=== PATIENT | male | born 1945 | race Caucasian/White ===

== ENCOUNTER 2021-01-07 09:50 | Outpatient (CLI) | payer OTHER, SELFPAY ==
--- NOTE | 2021-01-07 10:43 | ECG_ITS ---
Measurements Intervals [place] Rate: 60 P: 43 [place]: 159 QRS: 59 QRSD: 118 T: 63 QT: 383 QTc: 384 Interpretive Statements SINUS RHYTHM BORDERLINE ST-T WAVE ABNORMALITY- INF/HIGH LAT LEADS BASELINE ARTIFACT- I, II, III, AVR, AVL, AVF BORDERLINE ECG Electronically Signed On 01-07-2021 11:11:45 CDT by Prakash Anderson D.O.
[2021-01-07 11:08] LABS: Basophils Percent Auto 0.2 % (0.2-1.2); Eosinophils Absolute Auto 0.2 K/mm3 (0-0.3); Eosinophils Percent Auto 3.9 % (0-4.4); Hematocrit 44.9 % (42.0-52.0); Hemoglobin 15.2 g/dL (14.0-18.0); Immature Granulocyte Absolute 0.01 K/mm3 (0.00-0.031); Immature Granulocyte Percent A 0.2 % (0-0.5); Lymphocytes Absolute Auto 1.49 K/mm3 (0.9-3.2); Lymphocytes Percent Auto 30.3 % (18.3-44.2); Mean Corpuscular HGB Conc 33.9 g/dl (32-36); Mean Corpuscular Hemoglobin 32.3 pg (26-34); Mean Corpuscular Volume 95.3 fl (80-100); Mean Platelet Volume 9.5 fl (7.4-10.4); Monocytes Absolute Auto 0.5 K/mm3 (0.1-0.6); Monocytes Percent Auto 9.8 % (2.6-8.5); Neutrophils Absolute Auto 2.7 K/mm3 (1.3-6.7); Neutrophils Percent Auto 55.6 % (45.5-73.1); Platelet Count Result 191 k/mm3 (150-375); Red Blood Count 4.71 M/mm3 (4.6-6.20); Red Cell Distribution Width 12.3 % (11.5-14.5); White Blood Count 4.9 K/mm3 (4.5-10.0)
[2021-01-07 11:17] LABS: Albumin Level 4.3 g/dL (3.5-5.1); Estimated Glomerular Filt Rate > 60; Glucose 106 mg/dL (75-110)
[2021-01-07 11:21] LABS: Urine Cotinine NEGATIVE
== END 2021-01-07 09:51 | disposition home or self-care (01) ==
PROVIDERS: PCP Family Medicine; Visit Provider Orthopaedic Surgery
DX: Z01.818 Encounter for other preprocedural examination (principal); M16.11 Unilateral primary osteoarthritis, right hip; Z51.81 Encounter for therapeutic drug level monitoring; Z79.899 Other long term (current) drug therapy
CPT/HCPCS: 80307; 82040; 82565; 82947; 85025; 93005

== ENCOUNTER → 2021-01-17 00:34 | Outpatient (CLI) | payer OTHER, SELFPAY ==
[2021-01-17 20:54] LABS: SARS-CoV-2 RNA PCR Negative
== END ==
PROVIDERS: PCP Family Medicine; Visit Provider Orthopaedic Surgery
DX: Z01.812 Encounter for preprocedural laboratory examination (principal); Z20.822 Contact with and (suspected) exposure to COVID-19
CPT/HCPCS: C9803; U0003; U0005

== ENCOUNTER 2021-02-06 13:33 | Outpatient (CLI) | payer OTHER, SELFPAY ==
[2021-02-06 14:03] LABS: Anion Gap 4 mmol/L (8-16); Blood Urea Nitrogen 21 mg/dL (9-20); Calcium 9.8 mg/dL (8.4-10.2); Carbon Dioxide 33 mmol/L (22-30); Chloride 103 mmol/L (98-107); Estimated Glomerular Filt Rate > 60; Glucose 101 mg/dL (75-110); Potassium 4.1 mmol/L (3.4-5.0); Sodium 140 mmol/L (137-145)
== END 2021-02-06 13:34 | disposition home or self-care (01) ==
LOC: ANHSURGERY 13:37
PROVIDERS: PCP Family Medicine; Visit Provider Orthopaedic Surgery
DX: Z01.818 Encounter for other preprocedural examination (principal); M16.11 Unilateral primary osteoarthritis, right hip
CPT/HCPCS: 36415; 80048; 83036; 86850; 86900; 86901; 87070

== ENCOUNTER → 2021-02-14 02:14 | Outpatient (CLI) | payer OTHER, SELFPAY ==
[2021-02-14 19:55] LABS: SARS-CoV-2 RNA PCR Negative
== END ==
PROVIDERS: PCP Family Medicine; Visit Provider Orthopaedic Surgery
DX: Z01.812 Encounter for preprocedural laboratory examination (principal); Z20.822 Contact with and (suspected) exposure to COVID-19
CPT/HCPCS: C9803; U0003; U0005

== ENCOUNTER 2021-02-18 01:32 | Day surgery (SDC) | payer OTHER, SELFPAY ==
[2021-01-07 10:26] VITALS: BP 158/74; PULSE 72; RESP 20; TEMP 36.2; O2SAT 95; BMI 35.1
--- NOTE | 2021-01-19 12:52 | PM.IMHP ---
H&P: HPI History of Present Illness Date/Time: 01/19/21 12:52 The patient is a 75-year-old male who presents with right hip pain due to primary osteoarthritis. Patient has pain in the thigh and groin, he has problems with standing or walking for long periods notes some limitation of motion of the right hip as well. The patient has start-up pain wrist pain and I pain he has tried a course of conservative measures including anti-inflammatories and activity modification without significant relief. X-rays reveal advanced primary osteoarthritis basically [id number] in the right hip joint. Patient states he can not get comfortable can not sleep at night. He has discussed further treatment options in detail with Dr. Bowers he has failed conservative measures he had now to proceed with a right total hip arthroplasty. Chief Complaint: Right hip joint pain due to severe primary osteoarthritis Review of Systems Review of Systems: All systems reviewed & are unremarkable except as noted in HPI and below PMFSH Past Medical History Medical History Diverticulitis Erectile dysfunction Essential hypertension Mixed hyperlipidemia Type 2 diabetes mellitus without complication Family History Family History Mother Patient's mother is in good health Father Patient's father is in good health Sibling Patient's sister is in good health Patient's brother is in good health Family history of malignant neoplasm of breast in first degree relative Social History Social History Smoking status: Never smoker Second hand tobacco smoke exposure: No Alcohol intake: current Substance use: never Substance use type: does not use Spiritual care concerns: No Meds Home Medications and Allergies Home Medications Medication Instructions Recorded Confirmed Type sildenafil 100 mg tablet 100 mg PO DAILY PRN #10 tablet 02/21/20 01/07/21 Rx acetaminophen [Tylenol Ex Str 500 mg PO Q6H PRN 01/07/21 01/07/21 History Arthritis Pain] amlodipine 5 mg PO HS 01/07/21 01/07/21 History losartan 100 mg HS 01/07/21 01/07/21 History Allergies Allergy/AdvReac Type Severity Reaction Status Date / Time No Known Allergies Allergy unknown Uncoded 01/09/21 08:38 Exam Narrative: Exam Narrative: On exam the patient is noted be well-developed well-nourished male no acute distress he is alert oriented x3. Normal mood and affect. Hearing and vision intact. HEENT exam within normal limits. Heart regular rate rhythm. Lungs clear auscultation. Abdomen benign. Extremities showed the patient's right hip to be painful with manipulation range of motion he has limited internal and external rotation and pain with extremes of motion. He has a positive Stinchfield and positive VICKI exam. Strength is 5 5. hip joint is otherwise stable. Neurovascular the patient is intact. Skin is intact. Central nervous system exam within normal limits. The patient walks with a limp because of his right hip / groin pain. Assessment and Plan Additional Plan The patient has severe primary osteoarthritis right hip joint. The patient has discussed risks benefits limitations and alternatives to surgery in great detail Dr. Bowers, the patient is now ready to proceed with a right total hip arthroplasty. The patient is scheduled to undergo surgery for 05/15/2021 at [facility] with Dr. Bowers. The patient voiced understanding and agrees with the above plan.
[2021-02-04 08:48] VITALS: BMI 34.9
--- NOTE | 2021-02-16 15:36 | PM.IMHP ---
H&P: HPI History of Present Illness Date/Time: 02/16/21 15:36 75 y/o male patient of Dr. Flower who presents today for right anterior total arthroplasty. He has been having pain in his hip for well over 6 months. He has severe arthritis in the hip. He is very active 75-year-old. He still exercises on a regular basis and finding difficult to do that because the pain in the hip. He has tried [id number] Aleve and Tylenol but has not had improvement of his symptoms. He has reached a point where he feels he is ready to proceed with total hip arthroplasty rather continue nonsurgical treatment. <NANCY Gallardo - Last Filed: 02/16/21 15:42> Chief Complaint: right hip DJD <NANCY Gallardo - Last Filed: 02/16/21 15:42> Review of Systems Review of Systems: All systems reviewed & are unremarkable except as noted in HPI and below <NANCY Gallardo - Last Filed: 02/16/21 15:42> [facility] Past Medical History Medical History: Medical History (Updated 02/17/21 @ 13:10 by Darrius Gonzalez DO) Diverticulitis Erectile dysfunction Essential hypertension Mixed hyperlipidemia KAT (obstructive sleep apnea) CPAP Type 2 diabetes mellitus without complication <NANCY Gallardo - Last Filed: 02/16/21 15:42> Family History Family History: Family History Mother Patient's mother is in good health Father Patient's father is in good health Sibling Patient's sister is in good health Patient's brother is in good health Family history of malignant neoplasm of breast in first degree relative <NANCY Gallardo - Last Filed: 02/16/21 15:42> Social History Social History: Social History Smoking status: Never smoker Second hand tobacco smoke exposure: No Alcohol intake: current Alcohol use details: STATES MAYBE 1/MONTH Substance use: never Substance use type: does not use Living arrangements: with family Spiritual care concerns: No <NANCY Gallardo - Last Filed: 02/16/21 15:42> Meds Home Medications and Allergies Home medications: Home Medications Medication Instructions Recorded Confirmed Type sildenafil 100 mg tablet 100 mg PO DAILY PRN #10 tablet 02/21/20 02/18/21 Rx acetaminophen [Tylenol Ex Str 500 mg PO Q6H PRN 01/07/21 02/18/21 History Arthritis Pain] amlodipine 5 mg PO HS 01/07/21 02/18/21 History losartan 100 mg HS 01/07/21 02/18/21 History <NANCY Gallardo - Last Filed: 02/16/21 15:42> Allergies/Adverse reactions: Allergies Allergy/AdvReac Type Severity Reaction Status Date / Time No Known Allergies Allergy unknown Uncoded 02/18/21 11:56 <NANCY Gallardo - Last Filed: 02/16/21 15:42> Exam Narrative: Exam Narrative: 75-year-old male alert pleasant. He is 6 ft 2 and 255 lb. He rates his pain as a 9/10. He has a 2+ posterior tibial artery pulse and absent dorsalis pedis pulse. His right hip flexes to 90 internally rotates to 0 and externally rotates to 25, these motions cause him anterior lateral hip pain. Stinchfield maneuver causes some same pain. He has no tenderness over the greater trochanter and normal abduction strength in lateral position. Skin is normal around the hip. He has no edema in lower extremity. He has no numbness to light touch right lower extremity. <NANCY Gallardo - Last Filed: 02/16/21 15:42> Resp: Auscultation: clear to auscultation bilaterally <NANCY Gallardo - Last Filed: 02/16/21 15:42> Cardio: Rate: regular rate <NANCY Gallardo - Last Filed: 02/16/21 15:42> Rhythm: regular rhythm <NANCY Gallardo - Last Filed: 02/16/21 15:42> Assessment and Plan Additional Plan 75-year-old male who has [id number] arthritis of the right hip with continued symptoms. Again he feels this point is really proceed with total hip arthroplasty rather continue nonsurgical treatme
[2021-02-18] VITALS (13 sets, daily range): BP systolic 112–162; BP diastolic 59–90; PULSE 68–83; RESP 10–20; TEMP 36.1–36.7; O2SAT 92–99
--- NOTE | ~2021-02-18 | XR_ITS ---
EXAMINATION: XR hip RT min 2V DATE: 02/18/2021 16:24 INDICATION: Right total hip arthroplasty. Postop. TECHNIQUE: 2 views of right hip were obtained. COMPARISON: Right hip radiographs 10/04/2019 FINDINGS: There is a total right hip arthroplasty in near-anatomic alignment. No fracture. There is a catheter in the bladder. A surgical drain is noted. There is gas in the soft tissues, consistent wit h recent surgery. IMPRESSION: 1. Total right hip arthroplasty in near-anatomic alignment. Reviewed, dictated and finalized at location B.
--- NOTE | ~2021-02-18 | XR_ITS ---
EXAMINATION: XR surgery orthopedic DATE: 02/18/2021 16:24 INDICATION: Right total hip arthroplasty TECHNIQUE: 2 fluoroscopic images right hip. 30 seconds of fluoroscopy. FINDINGS: There is a right total hip arthroplasty in expected position. Subcutaneous gas with soft t issue swelling are consistent with recent surgery. IMPRESSION: 1. Recent right total hip arthroplasty. Reviewed, dictated and finalized at location A.
[2021-02-18] MEDS: LACTATED RINGERS 1,000 ML 30 ML IV CONT ×2 (11:10→16:26)
[2021-02-18] MEDS: ACETAMINOPHEN 500 MG TABLET 1000 MG PO ×2 (11:10→18:35)
--- NOTE | 2021-02-18 11:23 | WPDANESEPPF ---
Anes - Initial Pre Proc Eval Procedure: Operation Date: 02/18/21 12:00 Proposed Procedures p Right Total Hip Anterior Approach - Joselito Hedrick MD Date/Time: 02/18/21 11:23 Surgeon: Joselito Hedrick MD Pre Op Diagnosis: Right Hip OA Patient Data Age: 75 Gender: M Height: 1.88 m Weight: 123.5 kg Last Vital Signs Temp 36.2 C L 01/07/21 10:26 Pulse 72 01/07/21 10:26 Resp 20 01/07/21 10:26 BP 158/74 H 01/07/21 10:26 Pulse Ox 95 01/07/21 10:26 Allergies Allergy/AdvReac Type Severity Reaction Status Date / Time No Known Allergies Allergy unknown Uncoded 02/04/21 08:47 Home Medications Medication Instructions Recorded Confirmed Type sildenafil 100 mg tablet 100 mg PO DAILY PRN #10 tablet 02/21/20 02/04/21 Rx acetaminophen [Tylenol Ex Str 500 mg PO Q6H PRN 01/07/21 02/04/21 History Arthritis Pain] amlodipine 5 mg PO HS 01/07/21 02/04/21 History losartan 100 mg HS 01/07/21 02/04/21 History Patient hx anesthesia problems: none Family hx anesthesia problems: none PMFSH Past Medical History Medical History (Updated 02/17/21 @ 13:10 by Darrius Gonzalez DO) Diverticulitis Erectile dysfunction Essential hypertension Mixed hyperlipidemia KAT (obstructive sleep apnea) CPAP Type 2 diabetes mellitus without complication Family History Family History Mother Patient's mother is in good health Father Patient's father is in good health Sibling Patient's sister is in good health Patient's brother is in good health Family history of malignant neoplasm of breast in first degree relative Social History Social History Smoking status: Never smoker Second hand tobacco smoke exposure: No Alcohol intake: current Alcohol use details: STATES MAYBE 1/MONTH Substance use: never Substance use type: does not use Living arrangements: with family Spiritual care concerns: No Anes - Eval Final PreProcedure Day of Procedure 02/18/21 11:23 Patient weight: obese Heart: regular rate and rhythm Lungs: clear to auscultation and normal air movement Airway: Mallampati scale class II Neurological: alert and oriented Last oral intake: >/= 8 hours ASA classification: III Emergent: no Anesthetic plan: proceed Anesthesia type and monitoring: general ETT and standard monitoring Informed Consent: The patient's anesthetic plan and its attendant risks and benefits were discussed with the patient/family/POA. Questions were solicited and answers provided to the satisfaction of the patient/family/POA.
[2021-02-18] MEDS: TRANEXAMIC ACID 1,000MG/ISO100 1,000 MG/100 ML BAG 200 MG IVPB (11:31)
--- NOTE | 2021-02-18 11:57 | WPDHPUPDATE1 ---
History and Physical Update Update Date/Time: 02/18/21 11:57 History and Physical has been reviewed, including an updated exam of the patient. There are NO changes in the patient's condition. Risks, benefits, and alternatives have been discussed and questions answered. Patient agrees to proceed with procedure.
[2021-02-18] MEDS: ceFAZolin 3 GM/D5W 100 ML 100 ML IVPB (12:08)
[2021-02-18] MEDS: ceFAZolin SODIUM 1 GM VIAL 3 GM IRRIGATION (13:42)
[2021-02-18] MEDS: ceFAZolin SODIUM 1 GM VIAL IV PUSH (16:01)
[2021-02-18] MEDS: TRANEXAMIC ACID 1,000 MG/10 ML AMPUL 1000 MG IV PUSH (16:03)
--- NOTE | 2021-02-18 16:07 | PM.PROC ---
Procedure Note - Detailed Date of procedure: 02/18/21 Pre-op diagnosis: Right Hip OA Advanced osteoarthritis right hip, obesity BMI 35 Post-op diagnosis: same Procedure performed: Direct anterior approach right total hip arthroplasty Description of procedure: Patient was brought to the operating room and general anesthesia was administered. He received 3 g of Ancef (125 kg) weight based vancomycin and tranexamic acid 1 g. There was extra difficulty with the procedure because of his obesity weighing 200 and 75 lb approximately which added approximately 1 hour to the procedure. Boots were applied to the feet padded and he was transferred to the [facility] table and the right hip prepped draped usual fashion. A 10 cm longitudinal incision was made starting 3 cm lateral to the ASIS and this was eventually enlarged and another another cm proximally and distally. Dissection was carried down through the subcutaneous fat to the fascia and subcutaneous fat and sensory branches swept off the fascia. Fascia over the tensor fascia jana was incised longitudinally and elevated off the anterior 50% of the tensor fascia jana muscle. The interval between tensor fascia jana and rectus femoris was developed. We identified bifurcating branches of ascending lateral femoral circumflex vessels which were individually ligated and divided. Retractors were placed on the anterior capsule and the hip was abducted internally rotated and the gluteus minimus carefully elevated off the lateral capsule. Standard capsulotomy was performed and a femoral neck osteotomy made according to preoperative templating. The head was removed and measured 53 mm in diameter. It was severely arthritic. The acetabulum was exposed and the labrum excised. The leg was externally rotated and extended we identified the interval between piriformis tendon and conjoined tendon which was incised which allowed the conjoined tendon to recess giving increased anterior mobilization of the femur. We also resected the lateral corner of the lateral capsule for exposure. With the leg back in the horizontal position external rotation and traction the acetabulum was prepared. We medialized with a 44 and reamed to the 5153 and 55 which proved to be the proper size. We lightly reamed with a 56 a and chose the 56 shell which was impacted at approximately to 40? of abduction under fluoroscopic guidance and achieved an excellent press fit. Single screw was placed in the ilium. 36 mm inner diameter polyethylene liner was impacted into the shell without difficulty. Large inferior osteophyte was removed. There was fractured posterolateral acetabular rim versus heterotopic ossification which was in the lateral capsule proximal and slightly posterior to the acetabulum that we could see on radiographs but it was not immediately palpable so this was left alone. The femur was then externally rotated and fully extended. His exposure was difficult. Hyperextension of the bed helped and lead recreation assistant externally rotating that knee and thigh and helping with adduction assisted the positioning table arm. The concise impactor was utilized and we broached up to a size 8. This was inserted to a depth for the shoulder of the broach to be just under the lateral shoulder of the piriformis fossa according to preoperative templating we trialed with the +5. This was just a little bit loose. We could see that we could go up in size and we saw that leg lengths were appropriate with the right leg measuring just a couple mm shorter based on the lesser trochanters which appeared to have lengthen him the proper amount then. With the proximal femur again exposed we calcar planed to the level of the broach and we then inserted the 9 broach to that same depth and there was still a little bit of wiggle with a 9 we went with the 10 and the 10 was very difficult to seat the last 1/4 inch but the concise mechanical impactor was very helpful in carefully gradually see a achiev
[2021-02-18] MEDS: fentaNYL CITRATE INJ (*CRX) 100 MCG/2 ML VIAL 25 MCG IV PUSH ×4 (16:55→17:05)
[2021-02-18] MEDS: HYDROmorphone HCL INJ (*CRX) 1 MG/ML SYR 0.25 MG IV PUSH ×5 (17:09→17:37)
--- NOTE | 2021-02-18 18:00 | ADMGEN ---
This patient, Wenceslao Moffett, was admitted to 2 Medical Room 254-01. Patient/family oriented to hospital policies and general routines including ID bracelet, bed and alarms, visiting hours, pain management, procedures, bathroom and other care routines, personal items, smoking policy, room service/diet, and visiting hours. Information on how to activate the Rapid Response Team has been discussed. Patient/Family are encouraged to report perceived risks to care and to ask questions if they do not understand what they are told or what they should do.
[2021-02-18] MEDS: ceFAZolin 2 GM/D5W 50 ML 2 GM/50 ML BAG IVPB (20:31)
[2021-02-18] MEDS: LOSARTAN POTASSIUM 100 MG TABLET PO (21:04)
[2021-02-18] MEDS: oxyCODONE HCL (*CRX) 5 MG TAB IR PO (21:04)
[2021-02-18] MEDS: amLODIPine BESYLATE 5 MG TABLET PO (21:04)
[2021-02-19] MEDS: oxyCODONE HCL (*CRX) 5 MG TAB IR PO ×4 (00:31→12:39)
[2021-02-19] MEDS: ACETAMINOPHEN 500 MG TABLET 1000 MG PO ×3 (00:32→11:26)
[2021-02-19 02:11] VITALS: BP 136/60; PULSE 58; RESP 20; TEMP 36.4; O2SAT 98
[2021-02-19] MEDS: ceFAZolin 2 GM/D5W 50 ML 2 GM/50 ML BAG IVPB ×2 (04:59→12:38)
[2021-02-19 05:37] LABS: Basophils Percent Auto 0.1 % (0.2-1.2); Hematocrit 40.8 % (42.0-52.0); Hemoglobin 13.6 g/dL (14.0-18.0); Immature Granulocyte Absolute 0.04 K/mm3 (0.00-0.031); Immature Granulocyte Percent A 0.3 % (0-0.5); Lymphocytes Absolute Auto 1.35 K/mm3 (0.9-3.2); Lymphocytes Percent Auto 10.5 % (18.3-44.2); Mean Corpuscular HGB Conc 33.3 g/dl (32-36); Mean Corpuscular Hemoglobin 32.4 pg (26-34); Mean Corpuscular Volume 97.1 fl (80-100); Mean Platelet Volume 9.4 fl (7.4-10.4); Monocytes Absolute Auto 1.2 K/mm3 (0.1-0.6); Monocytes Percent Auto 9.4 % (2.6-8.5); Neutrophils Absolute Auto 10.2 K/mm3 (1.3-6.7); Neutrophils Percent Auto 79.7 % (45.5-73.1); Platelet Count Result 194 k/mm3 (150-375); Red Cell Distribution Width 12.4 % (11.5-14.5); White Blood Count 12.8 K/mm3 (4.5-10.0)
[2021-02-19 05:52] LABS: Anion Gap 4 mmol/L (8-16); Blood Urea Nitrogen 19 mg/dL (9-20); Calcium 8.8 mg/dL (8.4-10.2); Carbon Dioxide 33 mmol/L (22-30); Chloride 102 mmol/L (98-107); Estimated CRCL calculation 88 ml/min; Estimated Glomerular Filt Rate > 60; Glucose 133 mg/dL (75-110); Potassium 4.3 mmol/L (3.4-5.0); Sodium 139 mmol/L (137-145)
[2021-02-19 06:11] VITALS: BP 143/56; PULSE 73; RESP 18; TEMP 36.7; O2SAT 97
--- NOTE | 2021-02-19 07:13 | PM.PNORT ---
Progress Note: A&P Additional Plan POD 1 alert avss labs-noted, drain is out ,NVI, pain is controlled, wd-dry, pt has not been out of bed yet-got to floor late last evening. plan to have pt work with PT both times today then plan to send home this afternoon if cont. to do well Subjective Subjective Date/Time Seen: 02/19/21 07:13 Objective Data Vital Signs Vital Signs: Vital Signs - 24 hr 02/18/21 10:41 02/18/21 16:26 02/18/21 16:40 Temperature 36.7 C 36.4 C L Pulse Rate 70 74 77 Respiratory Rate 16 11 L 12 Blood Pressure 143/72 H 112/61 151/89 H Pulse Oximetry 95 96 98 02/18/21 16:55 02/18/21 17:10 02/18/21 17:25 Temperature Pulse Rate 74 71 74 Respiratory Rate 15 12 12 Blood Pressure 162/90 H 154/74 H 144/77 H Pulse Oximetry 96 99 95 02/18/21 17:40 02/18/21 18:00 02/18/21 18:15 Temperature 36.3 C L 36.3 C L Pulse Rate 71 83 68 Respiratory Rate 10 L 18 18 Blood Pressure 147/78 H 145/67 H 147/69 H Pulse Oximetry 92 94 94 02/18/21 18:45 02/18/21 19:40 02/18/21 22:11 Temperature 36.1 C L 36.7 C Pulse Rate 77 78 Respiratory Rate 18 20 Blood Pressure 142/67 H 135/59 L Pulse Oximetry 93 95 98 02/18/21 23:15 02/19/21 02:11 Temperature 36.4 C Pulse Rate 75 58 L Respiratory Rate 20 Blood Pressure 136/60 Pulse Oximetry 95 98 Intake/Output Intake/Output: Intake & Output 02/16/21 02/17/21 02/18/21 02/19/21 23:59 23:59 23:59 23:59 Intake Total 550 300 Output Total 50 660 Balance 500 -360 Meds/Results Medications: Active Medications Generic Name Dose Route Start Last Admin Trade Name Freq PRN Reason Stop Dose Admin Acetaminophen 1,000 mg 02/18/21 18:00 02/19/21 05:37 Acetaminophen 500 Mg Tablet PO 1,000 mg Q6H [place] Administration Amlodipine Besylate 5 mg 02/18/21 21:00 02/18/21 21:04 Amlodipine Besylate 5 Mg Tablet PO 5 mg HS [facility] Administration Apixaban 2.5 mg 02/19/21 09:00 Apixaban 2.5 Mg Tablet PO 03/25/21 21:01 Q12HR [place] Celecoxib 200 mg 02/19/21 08:00 Celecoxib 200 Mg Capsule PO 02/28/21 08:01 DAILY@0800 [place] Vancomycin HCl 1,000 mg in 250 mls @ 250 mls/hr 02/18/21 23:00 02/19/21 00:40 Vancomycin 1,000 Mg/D5w 250 Ml IVPB 02/19/21 11:59 Infused Q12H [place] Infusion Cefazolin Sodium 2 gm in 50 mls @ 100 mls/hr 02/18/21 20:00 02/19/21 05:30 Ancef 2 Gm/D5w 50 Ml IVPB 02/19/21 12:29 Infused Q8H [place] Infusion Losartan Potassium 100 mg 02/18/21 21:00 02/18/21 21:04 Losartan Potassium 100 Mg Tablet PO 100 mg HS [facility] Administration Magnesium Hydroxide 30 ml 02/18/21 16:25 Magnesium Hydroxide Susp 30 Ml Udc PO BID PRN Constipation Morphine Sulfate 2 mg 02/18/21 16:25 Morphine Sulfate (*Crx) 2 Mg/Ml Inj IV PUSH Q1H PRN Pain Rated 7-10 Naloxone HCl 0.1 mg 02/18/21 16:25 Naloxone Hcl 0.4 Mg/Ml Vial IV PUSH Q2M PRN Opiate Reversal Oxycodone HCl 5 mg 02/18/21 21:00 02/19/21 04:59 Oxycodone Hcl (*Crx) 5 Mg Tab Ir PO 5 mg Q4HR [place] Administration Oxycodone HCl 5 mg 02/18/21 16:25 Oxycodone Hcl (*Crx) 5 Mg Tab Ir PO Q4H PRN Pain Rated 7-10 Polyethylene Glycol 17 gm 02/19/21 09:00 Polyethylene Glycol 3350 17 Gm Powd.Pack PO QAM [facility] Senna/Docusate Sodium 2 tab 02/18/21 17:00 02/18/21 18:36 Senna/Docusate Sodium Tablet PO Not Given BID [facility] Radiology Results: ITS Impressions Hip X-Ray 02/18/21 16:25 IMPRESSION: 1. Total right hip arthroplasty in near-anatomic alignment. Intraoperative X-Ray 02/18/21 16:26 IMPRESSION: 1. Recent right total hip arthroplasty. Labs Labs: Laboratory Results - last 24 hr 02/19/21 02/19/21 05:14 05:14 WBC 12.8 H RBC 4.20 L Hgb 13.6 L Hct 40.8 L MCV 97.1 MCH 32.4 MCHC 33.3 RDW 12.4 Plt Count 194 MPV 9.4 Immature Gran % (Auto) 0.3 Neut % (Auto) 79.7 H Lymph % (Auto) 10.5 L Rhea % (Auto) 9.4 H Eos % (Au
--- NOTE | 2021-02-19 07:20 | PM.DS ---
DS: Admitting Diagnosis Admitting Diagnosis Admitting Diagnosis: Right hip arthritis. DS: Summary Hospital Course Hospital Course: stable Time Spent with Patient Time attestation: Total time spent providing and/or coordinating discharge services: 75-year-old male who underwent right anterior total hip arthroplasty on 02/18/2021. Underwent the procedure without any complications. Postoperatively he has been afebrile vital signs stable dressing checked his wound is dry. His drain is out. He is 50% weight-bearing with walker for the 1st month period time surgeries bones with little soft and he has a very large individual. He is on Eliquis for DVT prophylaxis for 5 weeks. He is also on Celebrex once a day for 2 weeks for heterotopic bone formation prophylaxis. Pain is well controlled with scheduled Tylenol as well as oxycodone 5 mg. Patient be discharged home on 02/18. He was advised to keep leg elevated at home to prevent swelling. He will also go home on additional week of Keflex. Patient was advised any questions or concerns once he goes home he should call the office otherwise is CMS 0.8. DS: Data Data Completed and Pending Labs on day of discharge: Labs from last 24 hours 02/19/21 02/19/21 05:14 05:14 WBC 12.8 H RBC 4.20 L Hgb 13.6 L Hct 40.8 L MCV 97.1 MCH 32.4 MCHC 33.3 RDW 12.4 Plt Count 194 MPV 9.4 Immature Gran % (Auto) 0.3 Neut % (Auto) 79.7 H Lymph % (Auto) 10.5 L Dunn % (Auto) 9.4 H Eos % (Auto) 0.0 Baso % (Auto) 0.1 L Lymph # (Auto) 1.35 Dunn # (Auto) 1.2 H Eos # (Auto) 0.0 Baso # (Auto) 0.0 Abs Immat Gran (auto) 0.04 H Absolute Neuts (auto) 10.2 H Absolute Nucleated RBC 0.0 Nucleated RBC % 0.0 Sodium 139 Potassium 4.3 Chloride 102 Carbon Dioxide 33 H Anion Gap 4 L BUN 19 Creatinine 0.90 Estim Creat Clear Calc 88 Estimated GFR > 60 Glucose 133 H Calcium 8.8 Discharge Plan Discharge Patient Disposition: Home, Self-Care Discharge Instructions: JOSELITO HEDRICK M.D [facility] [address] [place] [address] [address] [place] [address] POST-OPERATIVE DISCHARGE INSTRUCTIONS ANTERIOR TOTAL HIP ARTHROPLASTY 1. Move toes/feet up and down every hour while awake. 2. Be up walking every hour while awake. 3. Use cane in hand opposite of side of hip surgery or walker as comfort allows. Avoid sitting in a chair unless eating, receiving visitors or using the toilet. 4. When resting, lie on back with leg elevated above heart to minimize swelling. Significant swelling could indicate a blood clot and if this occurs, call the office (or go to the ER) to have a venous ultrasound performed. 5. Wound Care: Keep dry sponge on wound for 2 weeks. Use minimal tape. 6. Follow weight bearing status as instructed. 7. May shower with dressing off. Stand Alone Forms: General Discharge Instructions Follow-up/Referrals: Joselito Hedrick MD [Physician] - Keep Reg. Scheduled Appt. Discharge Medications: New acetaminophen 500 mg Tablet 1,000 mg PO Q6H Qty: 90 RF: 0 Eliquis 2.5 mg Tablet 2.5 mg PO Q12HR Qty: 69 RF: 0 celecoxib [Celebrex] 200 mg Capsule 200 mg PO DAILY@0800 Qty: 14 RF: 0 sennosides-docusate sodium [Senokot-S] 8.6-50 mg Tablet 1 tab-cap PO BID Qty: 60 RF: 0 polyethylene glycol 3350 [Miralax] 17 gram Powder In Packet 17 g PO QAM Qty: 30 RF: 0 oxycodone 5 mg Tablet 5 mg PO Q4HR Qty: 40 RF: 0 cephalexin 500 mg capsule 500 mg PO Q6H Qty: 28 RF: 0 Continued sildenafil [Viagra] 100 mg tablet 100 mg PO DAILY PRN (Reason: sexual activity) Qty: 10 RF: 6 amlodipine 5 mg tablet 5 mg PO HS RF: 0 losartan 100 mg tablet 100 mg HS RF: 0 Discontinued acetaminophen [Tylenol Ex Str Arthritis Pain] 500 mg Tablet 500 mg PO Q6H PRN (Reason: Pain) RF: 0
[2021-02-19] MEDS: CELECOXIB 200 MG CAPSULE PO (09:40)
[2021-02-19] MEDS: APIXABAN 2.5 MG TABLET PO (09:40)
[2021-02-19] MEDS: SENNA/DOCUSATE SODIUM TABLET 2 TAB PO (09:40)
[2021-02-19] MEDS: polyethylene glycoL 3350 17 GM POWD.PACK PO (09:40)
[2021-02-19 10:10] VITALS: BP 131/57; PULSE 68; RESP 16; TEMP 36.8; O2SAT 94
--- NOTE | 2021-02-19 13:52 | WPDANESPN ---
Anes - Prog Note Post-Op Date/Time: 02/19/21 13:52 Cardiovascular status: normal Respiratory status: normal Airway patency: baseline Mental status: baseline Post-Op hydration status: normal Vital Signs: Last Vital Signs Temp 36.8 C 02/19/21 10:10 Pulse 68 02/19/21 10:10 Resp 16 02/19/21 10:10 BP 131/57 L 02/19/21 10:10 Pulse Ox 94 02/19/21 10:10 Pain Score (VAS): 0/10. Patient sitting up to bedside chair at time of assessment, appears comfortable. I/O: Intake & Output 02/18/21 02/19/21 02/19/21 23:59 07:59 15:59 Intake Total 550 300 240 Output Total 50 660 Balance 500 -360 240 Laboratory Tests 02/19/21 05:14 02/19/21 05:14 02/19/21 02/19/21 05:14 05:14 WBC 12.8 H RBC 4.20 L Hgb 13.6 L Hct 40.8 L MCV 97.1 MCH 32.4 MCHC 33.3 RDW 12.4 Plt Count 194 MPV 9.4 Immature Gran % (Auto) 0.3 Neut % (Auto) 79.7 H Lymph % (Auto) 10.5 L [place] % (Auto) 9.4 H Eos % (Auto) 0.0 Baso % (Auto) 0.1 L Lymph # (Auto) 1.35 [place] # (Auto) 1.2 H Eos # (Auto) 0.0 Baso # (Auto) 0.0 Abs Immat Gran (auto) 0.04 H Absolute Neuts (auto) 10.2 H Absolute Nucleated RBC 0.0 Nucleated RBC % 0.0 Sodium 139 Potassium 4.3 Chloride 102 Carbon Dioxide 33 H Anion Gap 4 L BUN 19 Creatinine 0.90 Estim Creat Clear Calc 88 Estimated GFR > 60 Glucose 133 H Calcium 8.8 Post-procedural complaints: none Patient Feedback: Patient satisfied with anesthetic care.
[2021-02-19 14:11] VITALS: BP 110/48; PULSE 66; RESP 18; TEMP 36.8; O2SAT 95
== END 2021-02-19 15:30 | disposition home or self-care (01) ==
LOC: ANHSURGERY 10:25 → ANH2MED 17:51
PROVIDERS: PCP Family Medicine; Visit Provider Orthopaedic Surgery
PROC: (CPT 27130; principal; 2021-02-18 12:00)
DX: M16.11 Unilateral primary osteoarthritis, right hip (principal); I10 Essential (primary) hypertension; E78.2 Mixed hyperlipidemia; G47.33 Obstructive sleep apnea (adult) (pediatric); E11.9 Type 2 diabetes mellitus without complications; E66.9 Obesity, unspecified; Z68.35 Body mass index [BMI] 35.0-35.9, adult
CPT/HCPCS: 27130; 36415; 73502; 80048; 85025; 97110; 97116; 97161; 97165; A9270; C1776; J0171; J0690; J1100; J1170; J1885; J2270; J2405; J2704; J2710; J2795; J3010; J3370; J7120

== ENCOUNTER 2021-03-04 09:35 | Outpatient (CLI) | payer OTHER, SELFPAY ==
--- NOTE | ~2021-03-04 | US_ITS ---
EXAMINATION: US venous doppler LE RT EXAM DATE: 03/04/2021 10:18 INDICATION: Right leg swelling. TECHNIQUE: Multiple grayscale, color flow and Doppler images of the right lower extremity deep venous system were obtained and reviewed. There is no prior study for comparison. FINDINGS: The right common femoral, femoral and profunda veins demonstrate normal color flow, respira tory variation, augmentation and compressibility. Compressibility, color flow confirmed within the r ight popliteal, posterior tibial, peroneal, and greater saphenous veins. IMPRESSION: No right lower extremity deep venous thrombosis. Reviewed, dictated and finalized at location A.
== END 2021-03-04 09:36 | disposition home or self-care (01) ==
LOC: ANHIMG 09:39
PROVIDERS: PCP Family Medicine; Visit Provider Orthopaedic Surgery
DX: M79.89 Other specified soft tissue disorders (principal)
CPT/HCPCS: 93971

== ENCOUNTER 2021-04-18 15:57 | Emergency (ER) | payer OTHER, SELFPAY ==
[2021-04-18 16:08] VITALS: BP 139/70; PULSE 70; RESP 18; TEMP 36.9; O2SAT 95
--- NOTE | 2021-04-18 17:00 | ED.GENADULT ---
HPI - General Adult General Chief complaint: Skin/Abscess/Foreign Body Stated complaint: Rash Source: patient Mode of arrival: ambulatory Limitations: no limitations History of Present Illness HPI narrative: Patient presents for evaluation of rash to the face, neck, left upper extremity, webbing of fingers of both hands, and abdominal folds. He states he first noticed symptoms approximately 2 weeks ago. He cannot identify any new lotions, soaps, detergents, topical products. No one in the home has similar symptoms. Denies any difficulty breathing or swallowing. No history of similar symptoms. He has been using calamine lotion and taking hot showers. These therapies have not particularly helped. Related Data Home Medications Medication Instructions Recorded Confirmed amlodipine 5 mg PO HS 01/07/21 04/18/21 Allergies Allergy/AdvReac Type Severity Reaction Status Date / Time No Known Allergies Allergy Verified 04/18/21 16:16 Review of Systems Review of Systems: Narrative: CONSTITUTIONAL: Denies fever, chills, or sweats. EYES: Denies visual changes, redness, or discharge. ENT: Denies rhinorrhea, congestion, sore throat, or otalgia. CARDIOVASCULAR: Denies chest pain, palpitations, or edema. RESPIRATORY: Denies cough or dyspnea. GASTROINTESTINAL: Denies abdominal pain, nausea, vomiting, or diarrhea. GENITOURINARY: Denies dysuria or hematuria. SKIN: Reports pruritic rash to waist, LUE, face and neck MUSCULOSKELETAL: Denies back pain, joint pain, or myalgia. NEUROLOGIC: Denies headache, numbness, dizziness, or weakness. PSYCHIATRIC: Denies anxiety or depression. [facility] Past Medical History Medical History (Updated 04/18/21 @ 17:09 by MARI Frederick, MANI) Diverticulitis Erectile dysfunction Essential hypertension Mixed hyperlipidemia KAT (obstructive sleep apnea) CPAP Type 2 diabetes mellitus without complication Surgical History Surgical History History of right hip replacement Family History Family History Mother Patient's mother is in good health Father Patient's father is in good health Sibling Patient's sister is in good health Patient's brother is in good health Family history of malignant neoplasm of breast in first degree relative Social History Social History Smoking status: Never smoker Second hand tobacco smoke exposure: No Alcohol intake: current Alcohol use details: STATES MAYBE 1/MONTH Substance use: never Substance use type: does not use Living arrangements: with family Gender identity (if verbalized by the patient): Male Sexual Orientation (if Verbalized by the Patient): Straight or Heterosexual Spiritual care concerns: No Exam Narrative: Exam Narrative: GENERAL: Well-appearing, well-nourished, and in no acute distress. HEAD: Normocephalic, atraumatic. EYES: PERRLA and EOMI. ENT: Nares clear, no rhinorrhea or epistaxis. Mucous membranes moist. Oropharynx without tonsillar hypertrophy exudate or other lesions. Bilateral TMs pearly wadsworth nonbulging NECK: Supple. No adenopathy or masses. No carotid bruits or JVD CHEST: Clear to auscultation. No respiratory distress. No wheezes rales or rhonchi HEART: Regular rate and rhythm. No murmur heard. Normal peripheral pulses. ABDOMEN: Soft, nontender, nondistended, normal active bowel sounds. EXTREMITIES: Normal range of motion. No edema. SKIN: Patchy erythematous rash to right anterior neck. There is linear erythematous streaking along the left forearm with overlying areas of dried sanguinous drainage. There are also several scabbed lesions to the left forearm. There is a large area of patchy erythema noted to the abdomen within a skin fold. There are pinpoint areas of raised erythema in webbing of fingers of both hands. The line
== END 2021-04-18 17:15 | disposition home or self-care (01) ==
PROVIDERS: Emergency Provider Nurse Practitioner; PCP Family Medicine
DX: R21 Rash and other nonspecific skin eruption (principal); I10 Essential (primary) hypertension; E78.2 Mixed hyperlipidemia; G47.33 Obstructive sleep apnea (adult) (pediatric); E11.9 Type 2 diabetes mellitus without complications
CPT/HCPCS: 99213; G0463

== ENCOUNTER 2021-07-29 14:58 | Outpatient (CLI) | payer OTHER, SELFPAY ==
--- NOTE | ~2021-07-29 | XR_ITS ---
XR foot LT min 3V DATE: 07/29/2021 15:50 INDICATION: Medial left foot pain, redness and swelling TECHNIQUE: 4 views COMPARISON: None FINDINGS: There is diffuse osteopenia. There is prominent osteoarthritis at first metatarsophalangeal joint. Osteoarthritic changes are note d at the tarsal and tarsometatarsal joints. Plantar calcaneal enthesopathy. No fracture or dislocation, periosteal reaction or bone destruction is detected. IMPRESSION: Osteopenia Polyarticular osteoarthritis Plantar calcaneal enthesopathy Reviewed, dictated and finalized at location A.
== END 2021-07-29 14:59 | disposition home or self-care (01) ==
LOC: ANHIMG 15:01
PROVIDERS: PCP Family Medicine; Visit Provider Family Medicine
DX: M79.672 Pain in left foot (principal); M85.872 Other specified disorders of bone density and structure, left ankle and foot; M19.072 Primary osteoarthritis, left ankle and foot; M77.32 Calcaneal spur, left foot
CPT/HCPCS: 73630

== ENCOUNTER → 2021-10-10 01:20 | Outpatient (CLI) | payer OTHER, SELFPAY ==
[2021-10-11 15:56] LABS: SARS-CoV-2 RNA PCR Negative
== END ==
PROVIDERS: PCP Family Medicine; Visit Provider Physician Assistant
DX: R05.9 Cough, unspecified (principal); Z20.822 Contact with and (suspected) exposure to COVID-19
CPT/HCPCS: C9803; U0003; U0005

== ENCOUNTER 2022-07-15 13:56 | Outpatient (CLI) | payer OTHER, SELFPAY ==
--- NOTE | ~2022-07-15 | US_ITS ---
EXAMINATION: US soft tissue head and neck DATE: 07/15/2022 14:21 INDICATION: Localized swelling, mass and lump, neck. TECHNIQUE: Multiple grayscale and Doppler ultrasound images of the head and neck were obtained. COMPARISON: None FINDINGS: There is an 11 x 7 mm hypoechoic mass in superficial left parotid gland, likely a normal ly mph node. IMPRESSION: 1. Normal lymph node in left parotid gland. Reviewed, dictated and finalized at location A.
== END 2022-07-15 13:57 | disposition home or self-care (01) ==
PROVIDERS: PCP Family Medicine; Visit Provider Family Medicine
DX: R22.1 Localized swelling, mass and lump, neck (principal)
CPT/HCPCS: 76536

== ENCOUNTER 2022-11-10 12:40 | Outpatient (CLI) | payer OTHER, SELFPAY ==
--- NOTE | ~2022-11-10 | CT_ITS ---
EXAMINATION:CT diagnostic chest wo con DATE: 11/10/2022 14:05 INDICATION: Emphysema. Pericardial cyst. TECHNIQUE: Computed tomography (CT) of the chest was performed without intravenous contrast. Automate d exposure control and iterative reconstruction technique were employed. The dose-length product (DLP ) was 286.56 mGy-cm. COMPARISON: Chest CT 05/18/2019 FINDINGS: There is mild scarring at the lung apices. Calcified bilateral lung nodules are consistent with old granulomatous disease. There is mild bronchiectasis in the inferior lungs. There is mild ate lectasis in the inferior lungs. No pleural effusion. The heart size is normal. There are coronary art kang calcifications. No pericardial effusion. Calcifications in the spleen are consistent with old gra nulomatous disease. There are bridging endplate osteophytes at multiple levels in the spine, consiste nt with diffuse idiopathic skeletal hyperostosis (DISH). IMPRESSION: 1. Mild bronchiectasis in the inferior lungs. Reviewed, dictated and finalized at location A. 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
--- NOTE | 2022-11-10 16:46 | WPDPFTINT ---
PFT Procedure Performed PFT Procedure Performed Spirometry with Pre/Post Bronchodilator Plethysmography (Lung Vol) Diffusing Cap (DLCO) Flow Vol Loop PFT Interpretation This is a pulmonary function test with pre and post-bronchodilator spirometry, plethysmography and diffusing capacity. The test was performed and results interpreted in accordance with the 2019 and 2005 ATS/ERS Task Force guidelines respectively using the Global Lung Function Initiative-2012 reference equations. Patient demonstrated good effort and cooperation. Reproducibility criteria were met. The quality of the pre bronchodilator spirometry maneuver was Grade A and post bronchodilator spirometry maneuver was Grade A. Findings: Spirometry: The contour the inspiratory and expiratory flow tracing are normal. The pre bronchodilator FVC is 3.01 L, 70% predicted. The pre bronchodilator FEV1 is 2.14 L, 67% predicted. The pre bronchodilator FEV1: FVC ratio 71%. The post bronchodilator FVC is 3.34 L, representing an 11% increase. The post bronchodilator FEV1 is 2.33 L, representing a 9% increase. The post bronchodilator FEV1: FVC ratio was 70%. Plethysmography: The total lung capacity is 7.25 L, 97% predicted. The functional residual capacity is 4.36 L, 108% predicted. The residual volume is 4.13 L, 54% predicted. The residual volume:Total lung capacity ratio is 57%. Diffusing capacity: The diffusing capacity unadjusted for hemoglobin and carboxyhemoglobin is 25.8, 101% predicted. The diffusing capacity adjusted for alveolar volume is 4.36, 120% predicted. Impression: The spirometry is normal without evidence of an obstructive abnormality. The FEV1:FVC ratio is normal with a decreased FVC and FEV1 and no evidence of a restrictive abnormality. This is a nonspecific spirometry pattern. There is no significant improvement after inhaling a single dose of albuterol. The total lung capacity is normal with an increased residual volume and an increased residual volume:total lung capacity ratio indicating hyperinflation. The diffusing capacity is normal. There are no prior studies for comparison
== END 2022-11-10 12:41 | disposition home or self-care (01) ==
PROVIDERS: PCP Family Medicine; Visit Provider Physician Assistant
DX: J43.9 Emphysema, unspecified (principal)
CPT/HCPCS: 71250; 94060; 94726; 94729

== ENCOUNTER 2023-05-01 18:58 | Emergency (ER) | payer OTHER, SELFPAY ==
--- NOTE | ~2023-05-01 | XR_ITS ---
Left Knee Technique: AP, lateral, and sunrise views were obtained. Clinical History: Pain Findings: No fracture or dislocation is seen. Osseous alignment is anatomic. Minimal tricompartmental degenerative spurring noted. Moderate joint effusion probably present. Suspected small intra-articul ar loose bodies present in the suprapatellar pouch and possibly the posterior joint.. Impression: Mild tricompartmental degenerative change. Probable moderate joint effusion with suspected small intra-articular loose bodies. Reviewed, dictated and finalized at location M. Impression: Mild tricompartmental degenerative change. Probable moderate joint effusion with suspected small intra-articular loose bod ies.
--- NOTE | ~2023-05-01 | XR_ITS ---
AP and lateral views of the left femur Clinical History: Pain Findings: No acute fracture or dislocation is seen. Osseous alignment is anatomic. Mild degenerative change present at the right hip and right knee. Soft tissues are unremarkable. Impression: Mild degenerative changes at the right hip and right knee. No fracture or dislocation seen. Reviewed, dictated and finalized at [facility]. Impression: Mild degenerative changes at the right hip and right knee. No fracture or dislocation seen.
[2023-05-01 18:59] VITALS: BP 131/68; PULSE 79; RESP 18; TEMP 36.5; O2SAT 95
--- NOTE | 2023-05-01 20:50 | ED.LOWEXIN ---
HPI - Extremity Injury (Lower) General Chief Complaint: Extremity Injury, Lower Stated Complaint: Left Leg Time Seen by Provider: 05/01/23 19:06 History of Present Illness HPI Narrative: Patient is a 78-year-old male who presents ER with left knee pain/swelling. He was stepping down off a step and stepped into a hole. He then twisted and his foot became stuck between his buttock. He had increased pain in the knee and then he developed increased swelling. Unable to stand up. Did not strike his head or lose consciousness. Did get some abrasions to his left elbow. No numbness or tingling to his lower extremity. He is not on any blood thinners. Patient reports he just ridden his bike 30 miles and felt like his legs are little bit more weak and unsteady when he was walking. Related Data Allergies Allergy/AdvReac Type Severity Reaction Status Date / Time No Known Allergies Allergy Verified 03/02/23 10:58 Review of Systems Review of Systems: All systems reviewed & are unremarkable except as noted in HPI and below Constitutional: Constitutional: Denies chills and Denies fever(s) Cardiovascular: Cardiovascular: Denies chest pain, Denies rapid heart rate and Denies radiating jaw, neck or arm pain Respiratory: Respiratory: Denies cough and Denies dyspnea Musculoskeletal: Musculoskeletal: Reports arthralgias, Reports joint swelling and Denies muscle cramps Integumentary/Breasts: Skin/Breast: Denies pruritus and Denies rash Neurologic: Denies focal weakness, Denies numbness and Denies weakness PMFSH Past Medical History Medical History Diverticulitis Emphysema lung Encounter for immunization Erectile dysfunction Essential hypertension Mixed hyperlipidemia KAT (obstructive sleep apnea) CPAP Type 2 diabetes mellitus without complication Surgical History Surgical History History of right hip replacement Family History Family History Mother Patient's mother is in good health Father Patient's father is in good health Sibling Patient's sister is in good health Patient's brother is in good health Family history of malignant neoplasm of breast in first degree relative Social History Social History Smoking status: Never smoker Second hand tobacco smoke exposure: No Alcohol intake: current Alcohol use details: STATES MAYBE 1/MONTH Substance use: never Substance use type: does not use Lack of Transportation: No Lack of Food: Never True Current Housing: I Have Housing Concerned About Future Housing: No Difficulty Paying Gas/Electric Bills: No Difficulty Paying for Meds: No Currently Unemployed: No Education: High School Diploma/GED Difficulty w/ Childcare or Family Care: No Living arrangements: with family Occupation/Education: retired Additional occupation/education comments: [employer] Gender identity (if verbalized by the patient): Male Sexual Orientation (if Verbalized by the Patient): Straight or Heterosexual Spiritual care concerns: No Exam Narrative: GENERAL: Well-appearing, well-nourished, and in no acute distress. HEAD: Normocephalic, atraumatic. CHEST: Clear to auscultation. No respiratory distress. HEART: Regular rate and rhythm. Normal peripheral pulses. EXTREMITIES: Left lower extremity with limited range of motion at the knee due to pain. There is moderate effusion. Patella intact. Patient unable to keep the heel off the ground but I do not think the patellar tendon is disrupted, I think he cannot do it due to pain. SKIN: Warm, dry, no rash. NEURO: Alert and oriented x3. PSYCH: Normal mood and affect. Course Course Emergency Course: Patient will be placed in a knee immobilizer for comfort and given crutches
[2023-05-01 20:58] VITALS: BP 133/72; PULSE 80; RESP 15; O2SAT 97
== END 2023-05-01 21:01 | disposition home or self-care (01) ==
PROVIDERS: Emergency Provider Emergency Medicine; PCP Family Medicine
DX: S83.92XA Sprain of unspecified site of left knee, initial encounter (principal); J43.9 Emphysema, unspecified; I10 Essential (primary) hypertension; E78.2 Mixed hyperlipidemia; E11.9 Type 2 diabetes mellitus without complications; G47.33 Obstructive sleep apnea (adult) (pediatric); Z96.641 Presence of right artificial hip joint; X50.9XXA Other and unspecified overexertion or strenuous movements or postures, initial encounter
CPT/HCPCS: 73552; 73562; 99284

== ENCOUNTER 2023-05-09 06:43 | Outpatient (CLI) | payer OTHER, SELFPAY ==
--- NOTE | ~2023-05-09 | MR_ITS ---
EXAMINATION: MR knee LT wo con DATE: 05/09/2023 07:45 INDICATION: Left knee quadriceps tendon tear TECHNIQUE: Magnetic resonance imaging (MRI) of the left knee was performed without intravenous contra st. Sequences included coronal PD-weighted FSE, coronal PD-weighted FS FSE, sagittal T2-weighted FSE , sagittal PD-weighted FS FSE and axial PD weighted fat saturated FSE. COMPARISON: None. FINDINGS: Medial compartment: Complex tear of the medial meniscus including a longitudinal horizontal tear plane involving the body and posterior horn and a radial tear involving the inner two thirds of the posterior horn. Partial-t hickness cartilage loss with chondral surface regularity along both the medial tibial plateau and caridad ghtbearing medial femoral condyle. Lateral compartment: Complex tear involving the inner two thirds of the medial half of the posterior horn. Shallow chondra l fissuring with chondral surface irregularity but without significant loss of cartilage thickness at the anterior to central weightbearing lateral femoral condyle and central to posterior medial aspect of the lateral tibial plateau. Patellofemoral compartment: Deep chondral ulceration with underlying cortical irregularity and minimal subarticular edema-like si gnal change at the central to inferior aspect of the lateral trochlea. Remaining cartilage in the pat ellofemoral compartment appears relatively preserved. Ligaments and tendons: Anterior cruciate ligament is normal. There is increased intrasubstance signal and thickening of the posterior cruciate ligament consistent with at least partial tear. The medial collateral ligament and fibular collateral ligament complex are normal. Complete avulsion of the quadriceps tendon with appr oximately 1 cm proximal retraction. This includes stripping of the superficial portion of the tendon from the anterior margin of the cephalad two thirds of the patellar tendon. This longer portion of th e torn tendon is folded back upon itself, lying between the deeper portion of the tendon and its munroe llar footplate. There is moderate tendinopathy extending proximally 4 cm proximal to the tear margin. There is also some feathery muscular edema consistent with associated low-grade muscle strain involv ing the distal vastus lateralis. Mild proximal patellar tendinopathy without tear. The visualized med ial and lateral hamstring tendons as well as the iliotibial band are normal. Fluid: Small knee joint effusion which extends to the quadriceps tendon tear defect to indicate with a small amount of subcutaneous fluid anterior to the patella and distal quadriceps tendon. There is extensiv e subcutaneous edema about the left knee. 8 x 5 x 4 mm ovoid low signal intensity loose osteochondral body posterior to the posterior root of the medial meniscus. Osseous/other: Bone alignment is normal. No fracture or pathologic marrow replacing process. IMPRESSION: 1. Moderate tendinopathy and full-thickness patellar avulsion of the distal quadriceps tendon. 2. Complex medial and lateral meniscal tears, the former more extensive. 3. 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 Reviewed, dictated and finalized at location A. IMPRESSION: 1. Moderate tendinopathy and full-thickness patellar avulsion of the distal smita driceps tendon. 2. Complex medial and lateral meniscal tears, the former more extensive. 3. Mild tricompartmental osteoarthritis with high-grade chondromalacia at the l ateral trochlea and moderate grade chondromalacia in the medial and lateral com partments.
== END 2023-05-09 06:44 | disposition home or self-care (01) ==
PROVIDERS: PCP Family Medicine; Visit Provider Orthopaedic Surgery
DX: S83.232A Complex tear of medial meniscus, current injury, left knee, initial encounter (principal); X58.XXXA Exposure to other specified factors, initial encounter; M17.12 Unilateral primary osteoarthritis, left knee
CPT/HCPCS: 73721

== ENCOUNTER 2023-09-08 08:56 | Outpatient (CLI) | payer OTHER, SELFPAY ==
--- NOTE | ~2023-09-08 | US_ITS ---
EXAMINATION: US venous doppler [facility] DATE: 09/08/2023 09:34 INDICATION: Left lower limb swelling TECHNIQUE: Young scale images without and with compression and Doppler images of the left lower extrem ity veins were obtained. COMPARISON: None FINDINGS: The left common femoral vein, profunda femoral vein, femoral vein, popliteal vein, peroneal trunk, posterior tibial veins, and greater saphenous vein are patent. IMPRESSION: 1. Patent left lower extremity veins. No evidence of deep venous thrombosis. Reviewed, dictated and finalized at location L. 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
== END 2023-09-08 08:57 | disposition home or self-care (01) ==
PROVIDERS: PCP Family Medicine; Visit Provider Physician Assistant Surgical
DX: R60.0 Localized edema (principal)
CPT/HCPCS: 93971

== ENCOUNTER 2023-10-13 11:00 | Outpatient (RCR) | payer OTHER, SELFPAY ==
--- NOTE | 2023-08-17 11:14 | PTOPEVAL1 ---
Assessment and note entered by Jaquan Wu, PT Evaluation Information Assessment Status Evaluation Diagnosis Left quad rupture with surgical repair, Knee weakness, Loss in ROM Onset Surgery 05/10/23 Subjective Information Reports that he feel she is getting around okay and not having any pain unless he really pushes his knee into flexion. He is using the walker at all times as instructed. He has 3 steps into his home with no problem. He sees a chiropractor once a month for his back. Reports jacky he is getting swelling all of the time and sometimes has to lay down for a little while before he stretches his knee. Reported Pain Level Pain Score 0: Self Report Assessment PT Clinical Summary Patient presents with significant gait alterations , knee weakness, and loss of functional knee ROM. Patient will benefit from skilled therapy to address these deficits to improve overall functional gait mechanics, functional strength, and improve ROM to allow for improved transfer mechanics with emphasis on knee flexion. Patient also reflects significant knee edema and we will work to reduce as functional knee ROM is improved. Plan of Care Interventions Aquatic Therapy,Electrical Stimulation,Gait Training,Manual Therapy,Neuro Re-education,Patient /Caregiver Education,Therapeutic Activities, Therapeutic Exercise PT Services Indicated Yes Treatment Frequency and 2-3x/week for 4 weeks Duration These treatments will address the objective and functional deficits as defined above. The patient will be advanced safely and appropriately in order for the patient to progress towards his/her prior level of function. Additional exercises will be introduced and as well as a comprehensive home exercise program upon discharge, if needed, ?to ensure carryover of functional gains achieved in the clinic. This treatment plan has been reviewed and agreement upon by the patient.
--- NOTE | 2023-08-17 11:15 | OPREHPOC ---
Outpatient Therapy Plan of Care This is a Multidisciplinary Plan of Care that may contain components documented by all disciplines (PT, OT, and ST.) PT Problem 1 PT Problem #1 Knowledge Deficit PT Goal 1 Goal Miller with HEP Target Visit 4 PT Problem 2 PT Problem #2 Impaired Range of Motion PT Goal 1 Goal Patient will achieve terminal L knee extension to even stride length wth gait Target Visit 12 PT Goal 2 Goal Patient will achieve 120 degrees of L knee flexion to allow for functional squatting and transfer ability Target Visit 12 PT Problem 3 PT Problem #3 Edema PT Goal 1 Goal Demonstrate 2+ cm reduction in joint line edema indicating soft tissue healing Target Visit 12 PT Problem 4 PT Problem #4 Impaired Strength PT Goal 1 Goal Improve L knee extension strength to 5/5 to improve stability with ADLs and walking Target Visit 12 PT Problem 5 PT Problem #5 Impaired Gait PT Goal 1 Goal Patient will ambulate independent of AD with even stride length bilaterally Target Visit 12
--- NOTE | 2023-09-07 15:14 | PCPTNOTE ---
Pt arrived to therapy and reported he is to go to the hospital for ultrasound tomorrow to rule out blood clot and has an order dated today to end aquatic therapy. Pt's appt was cancelled.
--- NOTE | 2023-09-15 12:37 | PTOPPROG ---
Assessment and note entered by Jaquan Wu, PT Evaluation Information Assessment Status Progress Diagnosis Left quad rupture with surgical repair, Knee weakness, Loss in ROM Onset Surgery 05/10/23 Subjective Information Continues to struggle with some anterior knee tenderness and stiffness working into flexion. he was advised by his MD to be on the walker until he follows up with him next month. Would like to het back to riding a stationary bicycle but he is struggling with getting all the way around on the bike. No new concerns at this time with progress. Assessment PT Clinical Summary Patient making progress but has been difficult given delaying outpatient therapy for 2 months while in snf. We did see an exceptional improvement in motion this date which was passive. He is still struggling to get to that point actively. Will continue to benefit from skilled therapy to address these deficits moving forward. Plan of Care Interventions Aquatic Therapy,Electrical Stimulation,Gait Training,Manual Therapy,Neuro Re-education,Patient /Caregiver Education,Therapeutic Activities, Therapeutic Exercise PT Services Indicated Yes Treatment Frequency and 2x/week for 8 visits Duration These treatments will address the objective and functional deficits as defined above. The patient will be advanced safely and appropriately in order for the patient to progress towards his/her prior level of function. Additional exercises will be introduced and as well as a comprehensive home exercise program upon discharge, if needed, ?to ensure carryover of functional gains achieved in the clinic. This treatment plan has been reviewed and agreement upon by the patient.
--- NOTE | 2023-09-15 12:38 | OPREHPOC ---
Outpatient Therapy Plan of Care This is a Multidisciplinary Plan of Care that may contain components documented by all disciplines (PT, OT, and ST.) PT Problem 1 PT Problem #1 Knowledge Deficit PT Goal 1 Goal Independnece with HEP Target Visit 4 Progress Met PT Problem 2 PT Problem #2 Impaired Range of Motion PT Goal 1 Goal Patient will achieve terminal L knee extensin to even stride length wth gait Target Visit 12 Progress Met PT Goal 2 Goal Patient will achieve 120 degrees of L knee flexion to allow for functional squatting and transfer ability Target Visit 12 Progress Partially Met Comment Improving PT Problem 3 PT Problem #3 Edema PT Goal 1 Goal Demonstrate 2+ cm reduction in joint line edema indicating soft tissue healing Target Visit 12 Progress Partially Met Comment Greatly improved. Relevant swelling still present. PT Problem 4 PT Problem #4 Impaired Strength PT Goal 1 Goal Improve L knee extension strength to 5/5 to improve stability with ADLs and walking Target Visit 12 Progress Partially Met Comment Improvement noted PT Problem 5 PT Problem #5 Impaired Gait PT Goal 1 Goal Patient will ambulate independent of AD with even stride length bilaterally Target Visit 12 Progress Not Met Comment Limited by protocol but improving.
--- NOTE | 2023-10-13 14:04 | OPREHPOC ---
Outpatient Therapy Plan of Care This is a Multidisciplinary Plan of Care that may contain components documented by all disciplines (PT, OT, and ST.) PT Problem 1 PT Problem #1 Knowledge Deficit PT Goal [address] [place] with HEP Target Visit 4 Progress Met PT Problem 2 PT Problem #2 Impaired Range of Motion PT Goal 1 Goal Patient will achieve terminal L knee extension to even stride length wth gait Target Visit 12 Progress Met PT Goal 2 Goal Patient will achieve 120 degrees of L knee flexion to allow for functional squatting and transfer ability Target Visit 12 Progress Met PT Problem 3 PT Problem #3 Edema PT Goal 1 Goal Demonstrate 2+ cm reduction in joint line edema indicating soft tissue healing Target Visit 12 Progress Met PT Problem 4 PT Problem #4 Impaired Strength PT Goal 1 Goal Improve L knee extension strength to 5/5 to improve stability with ADLs and walking Target Visit 12 Progress Met PT Problem 5 PT Problem #5 Impaired Gait PT Goal 1 Goal Patient will ambulate independent of AD with even stride length bilaterally Target Visit 12 Progress Met
--- NOTE | 2023-10-13 14:04 | PTOPDC ---
Assessment and note entered by Jaquan Wu, PT Evaluation Information Assessment Status Discharge Diagnosis Left quad rupture with surgical repair, Knee weakness, Loss in ROM Onset Surgery 05/10/23 Subjective Information Reports that overall he feels he has hit his personal goals for therapy. Riding a bike and doing everything that he wanted to do prior to injury. No concerns at this time for HEP. Reported Pain Level Pain Score 0: Self Report Assessment PT Clinical Summary Patient has met all goals for therapy at this time . Has been compliant with HEP and consistent with HEP. Suitable for discharge at this time. Plan of Care PT Services Indicated Yes
== END 2023-10-13 14:15 | disposition home or self-care (01) ==
LOC: ANHPT 11:00
PROVIDERS: PCP Family Medicine; Visit Provider Physician Assistant Surgical
DX: S76.191D Other specified injury of right quadriceps muscle, fascia and tendon, subsequent encounter (principal)
CPT/HCPCS: 97016; 97110; 97113; 97140; 97161; 97530

== ENCOUNTER 2023-11-22 09:56 | Outpatient (CLI) | payer OTHER, SELFPAY ==
[2023-11-22 10:27] LABS: Hemoglobin A1C 6.5 % (<5.7)
[2023-11-22 10:29] LABS: Alanine Aminotransferase 30 U/L (6-50); Albumin Level 4.2 g/dL (3.5-5.1); Alkaline Phosphatase 51 U/L (38-126); Anion Gap 5 mmol/L (8-16); Aspartate Amino Transferase 29 U/L (17-59); Bilirubin,Total 0.8 mg/dL (0.2-1.3); Blood Urea Nitrogen 21 mg/dL (9-20); Calcium 9.5 mg/dL (8.4-10.2); Carbon Dioxide 34 mmol/L (22-30); Chloride 101 mmol/L (98-107); Cholesterol 157 mg/dL (0-200); Estimated Glomerular Filt Rate > 60; Glucose 125 mg/dL (65-110); HDL Direct 37 mg/dL; Potassium 3.4 mmol/L (3.4-5.0); Sodium 140 mmol/L (137-145); Triglycerides 136 mg/dL (<150)
[2023-11-22 10:40] LABS: LDL Cholesterol Direct 87 mg/dL
[2023-11-22 10:45] LABS: Creatinine Urine 118.2 mg/dL
[2023-11-22 11:01] LABS: MALB Creatinine Ratio < 5.1 mg/g (0-30); Microalbumin Urine Random < 6.0 mg/L (0-16.7)
== END 2023-11-22 09:57 | disposition home or self-care (01) ==
LOC: ANHLAB 09:58
PROVIDERS: PCP Family Medicine; Visit Provider Family Medicine
DX: Z00.00 Encounter for general adult medical examination without abnormal findings (principal); N18.30 Chronic kidney disease, stage 3 unspecified; E11.9 Type 2 diabetes mellitus without complications; E78.2 Mixed hyperlipidemia; Z12.5 Encounter for screening for malignant neoplasm of prostate
CPT/HCPCS: 36415; 80053; 80061; 82043; 83036; 84153; G0103

== ENCOUNTER 2023-12-09 16:00 | Outpatient (CLI) | payer OTHER, SELFPAY ==
--- NOTE | ~2023-12-09 | US_ITS ---
EXAMINATION:US venous doppler LE LT INDICATION:Soft tissue disorder TECHNIQUE: Multiple grayscale, color flow and Doppler images of the left lower extremity deep venous systems were obtained and reviewed. COMPARISON:09/08/2023 FINDINGS: The common femoral, superficial femoral and popliteal veins demonstrate normal respiratory variation, augmentation and compressibility. Color flow is also seen within the posterior tibial, pe roneal, greater saphenous and profunda veins. There is a Siddiqui's cyst of the left popliteal fossa. IMPRESSION: 1: No lower extremity deep venous thrombosis. Reviewed, dictated and finalized at location A.
--- NOTE | ~2023-12-09 | XR_ITS ---
XR foot LT min 3V 12/09/2023 16:31 Indication: Left foot pain Procedure: 4 views left foot Comparison: 07/29/2021 Findings: There is a healed left fifth metatarsal fracture distally which is new compared with prior study. Osteopenia. Moderate polyarticular osteoarthritis. Lisfranc joint intact. There is polyarticul ar osteoarthritis of the midfoot. There is atherosclerosis. Small degenerative calcaneal enthesophyte s. Impression: 1: No acute fracture. 2: Polyarticular osteoarthritis. Reviewed, dictated and finalized at location A. Impression: 1: No acute fracture. 2: Polyarticular osteoarthritis.
== END 2023-12-09 16:01 | disposition home or self-care (01) ==
PROVIDERS: PCP Family Medicine; Visit Provider Family Medicine
DX: M79.89 Other specified soft tissue disorders (principal); M19.072 Primary osteoarthritis, left ankle and foot
CPT/HCPCS: 73630; 93971

== ENCOUNTER 2024-01-04 10:00 | Outpatient (RCR) | payer OTHER, SELFPAY ==
--- NOTE | 2023-12-01 13:56 | PTOPEVAL1 ---
Assessment and note entered by Fernando Quiñones Evaluation Information Assessment Status Evaluation Diagnosis low back pain Onset 11/30/23 Subjective Information Pt. reports he has had years of on/off back pain. He reports that he cannot stand for greater than 10 minutes without noticing increased pain in his lower back. He reports that he had a recent TKA, and has become more active, making his back pain more noticeable. he reports that he has had medicare biller in the past with success. He reports that he has had no x-ray of the back in the past several years. He states that he has no complication in regards to sleep. He states that he can sit as long as he wants without pain. He states he has trouble doing the cooking at home, due to pain limiting his ability to stand for long duration. He has to sit frequently throughout the day to help reduce his back pain. He reports that his goal for therapy is to reduce his back pain with standing activities. Reported Pain Level Pain Score 5: Self Report Assessment PT Clinical Summary Pt. is a 78 year old male who enters the clinic with a diagnosis of low back pain. He presents with proximal l.e. weakness, impaired postural awareness, impaired gait and pain with prolonged standing. Continued skilled PT is indicated in order to address these areas to allow for improved comfort with IADL performance. Plan of Care Interventions Electrical Stimulation,Hot Pack/Cold Pack,Manual Therapy,Neuro Re-education,Patient/Caregiver Educati,Therapeutic Activities,Therapeutic Exercise PT Services Indicated Yes Treatment Frequency and 2x/week x 10 visits Duration These treatments will address the objective and functional deficits as defined above. The patient will be advanced safely and appropriately in order for the patient to progress towards his/her prior level of function. Additional exercises will be introduced and as well as a comprehensive home exercise program upon discharge, if needed, ?to ensure carryover of functional gains achieved in the clinic. This treatment plan has been reviewed and agreement upon by the patient.
--- NOTE | 2023-12-01 13:57 | OPREHPOC ---
Outpatient Therapy Plan of Care This is a Multidisciplinary Plan of Care that may contain components documented by all disciplines (PT, OT, and ST.) PT Problem 1 PT Problem #1 Knowledge Deficit PT Goal 1 Goal Pt. will be independent with a HEP addressing trunk mobility and l.e. strength Target Visit 2 PT Problem 2 PT Problem #2 Pain PT Goal 1 Goal Pt. will reduce subjective reports of pain to 3/10 at worst with prolonged standing activities such as cooking. Target Visit 10 PT Problem 3 PT Problem #3 Impaired Flexibility PT Goal 1 Goal Pt. will present at 20 degrees from full knee extension with the 90/90 test in order to improve postural awareness Target Visit 10 PT Problem 4 PT Problem #4 Impaired Strength PT Goal 1 Goal Pt. will present with 5/5 proximal l.e. strength, specifically at the hip abductors and extensors. Target Visit 10 PT Problem 5 PT Problem #5 Impaired Functional Mobil PT Goal 1 Goal Pt. will demonstrate ability to participate in 30 minutes of standing therapeutic activities within the clinic with 3/10 pain reports at worst Pt. will improve his Modified Oswestry score to less than 10% limitation. Target Visit 10
--- NOTE | 2024-01-04 10:56 | PTOPDC ---
Assessment and note entered by Fernando Quiñones Evaluation Information Assessment Status Discharge Diagnosis low back pain Onset 11/30/23 Subjective Information Pt. reports that his pain intensity has decreased significantly. He reports that his pain levels have been an 3/10 at worst at the low back in the past couple weeks. He reports that he is pleased with his progress and ready for discharge at this time. Reported Pain Level Pain Score 0: Self Report Pain Score 0: Self Report Assessment PT Clinical Summary Pt. independent with current HEP. He demonstrates improvements in regards to mobility, flexibility and strength. Pt. has improved his Modified Oswestry score and demonstrates no significant functional limitations. He is appropriate for discharge at this time. Plan of Care PT Services Indicated No
== END 2024-01-04 11:43 | disposition home or self-care (01) ==
LOC: ANHPT 10:00
PROVIDERS: PCP Family Medicine; Visit Provider Family Medicine
DX: M54.16 Radiculopathy, lumbar region (principal)
CPT/HCPCS: 97110; 97112; 97140; 97161; 97530

== ENCOUNTER 2024-10-04 09:30 | Outpatient (RCR) | payer OTHER, SELFPAY ==
[2024-08-02 09:38] VITALS: BMI 34.0
[2024-08-02 09:41] VITALS: BMI 34.0
[2024-10-04 09:41] VITALS: BMI 32.3
== END 2024-10-22 09:38 | disposition home or self-care (01) ==
LOC: ANHDMC 09:30
PROVIDERS: PCP Family Medicine; Visit Provider Family Medicine
DX: E11.65 Type 2 diabetes mellitus with hyperglycemia (principal); Z71.89 Other specified counseling; Z71.3 Dietary counseling and surveillance
CPT/HCPCS: 97802; 97803; G0108; G0109

== ENCOUNTER 2024-12-13 14:21 | Outpatient (RCR) | payer OTHER, SELFPAY | END 2024-12-17 16:10 | disposition home or self-care (01) | LOC: ANHDMC 14:21 | PROVIDERS: PCP Family Medicine; Visit Provider Family Medicine | DX: E11.65 Type 2 diabetes mellitus with hyperglycemia (principal); Z71.89 Other specified counseling | CPT/HCPCS: G0109 ==

== ENCOUNTER 2025-07-09 15:46 | Outpatient (CLI) | payer OTHER, SELFPAY ==
--- NOTE | ~2025-07-09 | XR_ITS ---
EXAMINATION: XR hand RT 2V, 07/09/2025 15:57 CDT HISTORY: M79.644 - Pain in right finger(s) COMPARISON: No comparisons available. Findings: No acute fracture or malalignment. Severe degenerative changes of the first metacarpal carpal joint Soft tissues unremarkable. Impression: No acute fracture or malalignment. Reviewed, dictated and finalized at location P. Impression: No acute fracture or malalignment.
--- OUTSIDE RECORDS SUMMARY | 2025-07-09 17:19 | XMS_ITS | Clinical Summary ---
Author Organization [facility] Address [address] [place] [address] Care Team Providers Care Stock Selector Name Role Phone Margo Flower MD Primary Care Provider [phone] Allergies No known active allergies Medications amLODIPine (NORVASC) 5 mg tablet Take 5 mg by mouth daily 0 Active losartan (COZAAR) 100 mg tablet Take 100 mg by mouth daily 0 Active sildenafiL (VIAGRA) 100 mg tablet Take 100 mg by mouth as needed 0 Active permethrin (ELIMITE) 5 % cream PLEASE SEE ATTACHED FOR DETAILED DIRECTIONS 1 Active predniSONE (DELTASONE) 50 mg tablet Take 50 mg by mouth daily 1 Active triamcinolone (KENALOG) 0.1 % cream APPLY TO AFFECTED AREA 3 TIMES A DAY 1 Active ketoconazole (NIZORAL) 2 % creamIndication s:Seborrheic dermatitis Mix 50/50 with desonide cream and apply twice daily to areas of flaking and irritation (eyebrows, nose, around mouth) for 2 weeks when rash is flaring. 60 g 3 4 Active desonide (DESOWEN) 0.05 % creamIndication s:Seborrheic dermatitis Mix 50/50 with ketoconazole cream and apply twice daily to areas of flaking and irritation (eyebrows, nose, around mouth) for 2 weeks when rash is flaring. 60 g 3 4 Active Active Problems No known active problems Medical History Medical History Date Comments Hypertension Diverticulitis Hyperlipidemia Diabetes mellitus Sleep apnea Family History Medical History Relation Name Comments Diabetes Brother Diabetes Mother Heart disease Mother Diabetes Sister Relation Name Status Comments Brother Father (Age 82) Mother Alive Sister Social History Tobacco Use Types Packs/Day Years Used Date Smoking Tobacco: Never Smokeless Tobacco: Never Sex and Gender Information Value Date Recorded Sex Assigned at Not on file Legal Sex Male 12:38 AM [employer] Gender Identity Not on file Sexual Orientation Not on file Obstetrics History Last Filed Vital Signs Vital Sign Reading Time Taken Comments Blood Pressure 144/78 04/22/2021 10:13 AM CDT Pulse 74 04/22/2021 10:13 AM CDT Temperature 36.3 C (97.4 F) 12/29/2020 7:30 AM CDT Respiratory Rate - - Oxygen Saturation 95% 04/22/2021 10:13 AM CDT Inhaled Oxygen Concentration - - Weight 126.6 kg (279 lb) 04/22/2021 10:13 AM CDT Height 189.2 cm (6' 2.5) 04/22/2021 10:13 AM CD T Body Mass Index 35.34 04/22/2021 10:13 AM CDT Plan of Treatment Health Maintenance Due Date Last Done Comments Depression Screening 1945 Fall Risk Assessment 1945 Hepatitis C Screening 1945 DTaP/Tdap/Td Vaccine (1 - Tdap) 1957 Hepatitis B Screening 1964 Zoster Vaccine (1 of 2) 1996 Well Visit 65+ 2011 Influenza Vaccine (#1) 2025 08/05/2016 Pneumococcal vaccine 65+ Completed 03/16/2019, 07/27 Insurance [facility] [id number] [facility] [id number] Care Teams Stock Selector Relationship Specialty Start Date End Date Margo Flower MD PCP - General 03/16/17
== END 2025-07-09 15:47 | disposition home or self-care (01) ==
PROVIDERS: PCP Family Medicine Adolescent Medicine; Visit Provider Student in an Organized Health Care Education/Training Program
DX: M79.644 Pain in right finger(s) (principal)
CPT/HCPCS: 73120